=== PATIENT | female | born 2005 | race American Indian/Alaskan Native ===

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

== ENCOUNTER 2024-11-05 15:44 | Inpatient (IN) | payer MEDICAID ==
[2024-11-05 16:35] LABS: BASOPHILS PERCENT AUTO 0.1 % (0.0-1.0); EOSINOPHILS PERCENT AUTO 0.1 % (1.0-3.0); LYMPHOCYTES PERCENT AUTO 11.6 % (20.5-50.1); MONOCYTES PERCENT AUTO 3.9 % (2-8); NEUTROPHILS PERCENT AUTO 84.3 % (42.2-75.2); PLATELET COUNT,PLT 316 10^3/uL (150-450); RED BLOOD CELL COUNT 4.00 10^6/uL (4.2-5.4); WHITE BLOOD CELL COUNT,WBC 13.9 10^3/uL (5.0-10.0)
[2024-11-05] MEDS ORDERED: Carboprost Tromethamine 250 MCG/1 ML Amp IM PRN (18:00)
[2024-11-05] MEDS ORDERED: Sodium Chloride 0.9% 10 ML Syringe FLUSH PRN (18:00)
[2024-11-05] MEDS ORDERED: Oxytocin/Lactated Ringers 30 UNIT/500 ML BAG IV SCH ×2 (18:00→21:15)
[2024-11-05] MEDS: fentaNYL 100 MCG/2 ML SDV IVPUSH ONE (18:29)
[2024-11-05] MEDS: Lactated Ringers 1,000 ML IV ONE (18:35)
[2024-11-05] MEDS: Lactated Ringers 1,000 ML IV SCH (18:54)
[2024-11-05] MEDS: Oxytocin/Normal Saline 30 UNIT/500 ML BAG IV SCH ×2 (19:35→20:35)
[2024-11-05] MEDS ORDERED: Ropivacaine 200 MG in Premix Bag 1 BAG EPIDUR SCH (19:45)
[2024-11-05] MEDS ORDERED: Oxytocin/Normal Saline 30 UNIT/500 ML BAG IV SCH (21:15)
[2024-11-05] MEDS: Ondansetron 4 MG/2 ML SDV IVPUSH PRN (23:29)
[2024-11-06] MEDS: ePHEDrine 50 MG/ML SDV IVPUSH PRN (00:19)
[2024-11-06] MEDS: Misoprostol 400 MCG (4 X 100 MCG TAB) ONE (06:42)
[2024-11-06] MEDS ORDERED: Sodium Chloride 0.9% 10 ML Syringe FLUSH PRN (06:59)
[2024-11-06] MEDS ORDERED: Oxytocin 10 Units/1 ML SDV IM PRN (06:59)
[2024-11-06] MEDS: Prenatal Multivitamin with Calcium/Folic Acid/Iron Tab PO SCH (10:02)
[2024-11-06] MEDS: Benzocaine/Menthol 20%-0.5% Spray 78 GM Cannister TOP PRN (10:15)
[2024-11-06] MEDS: Witch Hazel Medicated Pads 100/Jar TOP PRN (10:15)
[2024-11-06 12:18] LABS: PLATELET COUNT,PLT 258.0 10^3/uL (150-450); RED BLOOD CELL COUNT 3.19 10^6/uL (4.2-5.4); WHITE BLOOD CELL COUNT,WBC 16.7 10^3/uL (5.0-10.0)
[2024-11-07 20:41] VITALS: PULSE 61
[2024-11-08 07:20] VITALS: BP 123/61
== END 2024-11-08 11:20 | disposition home or self-care (01) | DRG 806 ==
LOC: DL.OBCHECK 15:44 → DL.OB 18:17 → OBSVTOIN 11-06 06:36
PROVIDERS: ADMIT Family Medicine; ATTEND Family Medicine
PROC: 10E0XZZ Delivery of Products of Conception, External Approach (ICD-10-PCS; principal; 2024-11-06)
PROC: 0KQM0ZZ Repair Perineum Muscle, Open Approach (ICD-10-PCS; 2024-11-06)
PROC: 10907ZC Drainage of Amniotic Fluid, Therapeutic from Products of Conception, Via Natural or Artificial Opening (ICD-10-PCS; 2024-11-06)
PROC: 3E0R3BZ Introduction of Anesthetic Agent into Spinal Canal, Percutaneous Approach (ICD-10-PCS; 2024-11-06)
PROC: 00HU33Z Insertion of Infusion Device into Spinal Canal, Percutaneous Approach (ICD-10-PCS; 2024-11-06)
DX: O70.1 Second degree perineal laceration during delivery (principal); D62 Acute posthemorrhagic anemia; Z37.0 Single live birth; O90.81 Anemia of the puerperium; Z3A.39 39 weeks gestation of pregnancy; O62.2 Other uterine inertia; O77.0 Labor and delivery complicated by meconium in amniotic fluid
CPT/HCPCS: 36415; 51702; 59409; 85025; 85027; A9270-GY; J0690; J2405; J2590; J3010; J3490; J7120